=== PATIENT | female | born 1940 | race Caucasian/White ===

== ENCOUNTER 2017-01-20 10:12 | Emergency (ER) | payer OTHER, BC ==
[2017-01-20 10:51] VITALS: BP 177/75; PULSE 110; RESP 18; TEMP 96.8; O2SAT 96
[2017-01-20 11:17] LABS: COLOR YELLOW; LEUKOCYTE ESTERASE,URINE 3+ (NEGATIVE); NITRITE,URINE POSITIVE (NEGATIVE)
--- NOTE | 2017-01-20 11:23 | UCPHY ---
H & P Time Seen by Provider: 01/20/17 10:59 Patient Type: New HPI/ROS: Vision has dysuria, urgency and frequency over the past 4 days increasing in intensity. She thinks that she has urinary tract infection as the symptoms are similar to prior urinary tract infections. She has been increasing her fluid intake with some persistent symptoms. She notes no exacerbating or relieving factors. ROS: No fevers or chills. She reports no back pain. No vomiting. And a 5 point ROS is otherwise negative. Past Medical/Surgical History: Parkinson's. Frequent UTIs Smoking Status: Former smoker Physical Exam: General Appearance: Alert, no distress. Eyes: Pupils equal and round no pallor or injection. Respiratory: There are no retractions, lungs are clear to auscultation. Cardiovascular: Regular rate and rhythm. Gastrointestinal: Mild suprapubic tenderness no guarding or rebound. Back: No CVA tenderness Neurological: Alert with an intention tremor Skin: Warm and dry, no rashes. DIFFERENTIAL DIAGNOSIS: After history and physical exam differential diagnosis was considered for cystitis, interstitial cystitis, pyelonephritis Constitutional: Initial Vital Signs Temperature (C) 36.0 C 01/20/17 10:49 Heart Rate 110 H 01/20/17 10:49 Respiratory Rate 18 01/20/17 10:49 Blood Pressure 177/75 H 01/20/17 10:49 O2 Sat (%) 96 01/20/17 10:49 O2 Delivery Mode Room Air Allergies/Adverse Reactions: amoxicillin [Amoxicillin] Allergy (Verified 01/20/17 10:46) Rash cefazolin Allergy (Verified 01/20/17 10:46) Rash cephalexin monohydrate [From Keflex] Allergy (Verified 01/20/17 10:46) venlafaxine HCl [From Effexor] Allergy (Verified 01/20/17 10:46) Other-Enter Comments Home Medications: Medication Instructions Recorded Simvastatin [Zocor] 40 mg PO HS 12/26/15 clonazePAM [Klonopin (*)] 0.5 mg PO HS 12/26/15 Carbidopa/Levodopa 25/100Mg 2 tab PO TIDMEAL 01/02/16 [Sinemet 25/100 MG (*)] lamoTRIgine [LaMICtal] 62.5 mg PO DAILY 01/02/16 ALPRAZolam [Xanax 0.25 MG (*)] 0.125 mg PO TID PRN #0 tab 01/04/16 Ondansetron Odt [Zofran Odt 4 mg 4 mg PO Q6 PRN 01/09/16 (*)] Divalproex ER [Depakote ER 250 MG 500 mg PO HS 01/15/16 (*)] Tapentadol HCl [Nucynta 50 MG (*)] 50 mg PO Q4 PRN #0 tab 01/20/16 Lisinopril [Zestril 5 mg (*)] 01/20/17 Metoprolol Succinate 01/20/17 Nitrofurantoin Macrobid [Macrobid 100 mg PO BID #10 cap 01/20/17 100 mg (RX)] clonAZEPAM [CLONAZEPAM] 01/20/17 MDM/Departure - MDM Diagnostics: Urinalysis reveals findings consistent with UTI.-pyuria, bacteria, culture pending ED Course/Re-evaluation: Patient's findings are clinically consistent with cystitis. No significant findings for pyelonephritis. - Depart Disposition: Home, Routine, Self-Care Clinical Impression: Cystitis Condition: Good Instructions: Urinary Tract Infection in Women (ED) Additional Instructions: Diagnosis: Bladder infection Plan: Drink plenty fluids Macrobid antibiotic Return for any significant worsening despite the treatment plan. Prescriptions: Nitrofurantoin Macrobid [Macrobid 100 mg (RX)] 100 mg PO BID #10 cap Referrals: Colby Edwards DO [Primary Care Provider] - As per Instructions - PQRS PQRS Measurement: NA
[2017-01-20 11:39] LABS: BACTERIA 3+ /hpf (NONE SEEN); WBC,URINE 50-182 /hpf (0-3)
== END 2017-01-20 11:32 | disposition home or self-care (01) ==
LOC: CED 10:12
DX: N39.0 Urinary tract infection, site not specified (principal); G20 Parkinson's disease; Z87.891 Personal history of nicotine dependence; Z87.440 Personal history of urinary (tract) infections; Z88.0 Allergy status to penicillin
CPT/HCPCS: 81003-PO; 81015-PO; 99203-PO; G0463-PO

== ENCOUNTER → 2018-03-04 | Outpatient (CLI) | payer OTHER, BC | LOC: FIMAGING 13:58 | PROVIDERS: ATTEND Family Medicine | DX: K57.30 Diverticulosis of large intestine without perforation or abscess without bleeding (principal); M51.36 Other intervertebral disc degeneration, lumbar region; I70.0 Atherosclerosis of aorta; R91.1 Solitary pulmonary nodule ==